=== PATIENT | male | born 1975 | race Caucasian/White ===

== ENCOUNTER → 2017-10-15 07:19 | Outpatient (CLI) | payer MEDICAID ==
[2013-09-03 06:16] VITALS: BMI 33.0
[~2017-10-15 07:19] MED LIST: CIPRO500 MG PO; FLAGYL500 MG PO; HYDROCODONE-APA1 TAB PO; LEVAQUIN750 MG PO; SINGULAIR10 MG PO; SYMBICORT 80-10.2 GM INH
== END | disposition home or self-care (01) ==
LOC: D.US 07:19
DX: N20.0 Calculus of kidney (principal)

== ENCOUNTER → 2017-10-25 09:16 | Outpatient (CLI) | payer MEDICAID ==
[2013-09-03 06:16] VITALS: BMI 33.0
== END | disposition home or self-care (01) ==
LOC: D.CT 09:16
DX: N20.0 Calculus of kidney (principal)